=== PATIENT | male | born 1970 | race Caucasian/White ===

== ENCOUNTER 2016-12-14 06:23 | Emergency (ER) | payer BC, OTHER ==
[2016-12-14 08:14] VITALS: BP 118/76
--- NOTE | 2016-12-14 08:14 | RAD ---
HISTORY: Laceration to second digit of left hand COMPARISONS: None VIEWS: 3, Frontal, lateral, and oblique views of the second digit of the left hand FINDINGS: BONE DENSITY: Normal. BONES: There is a small bone fragment consistent with a nondisplaced fracture of the tip of the tuft of the distal phalanx of the second digit of left hand. JOINTS: There is no arthropathy. ALIGNMENT: There is no dislocation. SOFT TISSUES: Unremarkable. OTHER FINDINGS: None. IMPRESSION: NONDISPLACED FRACTURE OF THE TUFT OF THE DISTAL PHALANX OF THE SECOND DIGIT OF THE LEFT HAND
--- NOTE | 2016-12-14 08:22 | ED ---
Roger Godinez Anna, scribed for Ashley Valdivia MD on 12/14/16 at 0725 . Laceration/Wound HPI - HPI Summary HPI Summary: Patient is a 46 y/o male coming to [facility] presenting with sudden onset of a constant laceration on the 2nd digit of his left hand that occurred at 1999 last night. The patient was cleaning the blade of kitchen equipment last night when he cut his finger. He reports that the blade was clean. He bandaged the laceration with pressure last night. When he removed the bandage this morning, he couldnt stop the bleeding, so he came to the ER. He reports no other medical concerns at this time. His most recent tetanus shot was four years ago. - History of Current Complaint Stated Complaint: LEFT POINTER FINGER LAC Hx Obtained From: Patient Onset/Duration: Sudden Onset, Lasting Hours, Still Present Related Hx: Dominant Hand (Right) - Allergy/Home Medications Allergies/Adverse Reactions: Allergies Allergy/AdvReac Type Severity Reaction Status Date / Time No Known Allergies Allergy Verified 07/23/13 14:03 PMH/Surg Hx/FS Hx/Imm Hx Previously Healthy: Yes Endocrine/Hematology History: Denies: Hx Diabetes, Hx Thyroid Disease Cardiovascular History: Denies: Hx Hypertension Respiratory History: Denies: Hx Asthma, Hx Chronic Obstructive Pulmonary Disease (COPD) GI History: Reports: Other GI Disorders - hx gerd, pain 4 quads for 2 days Denies: Hx Ulcer - Surgical History Surgery Procedure, Year, and Place: Umbilical hernia repair 2005 Infectious Disease History: No Infectious Disease History: Reports: Hx Shingles - > 10 years ago Denies: Hx Hepatitis, Hx Human Immunodeficiency Virus (HIV), Traveled Outside the [place] in Last 30 Days - Family History Known Family History: Negative: Hypertension, Diabetes - Social History Occupation: Employed Full-time - [place] Lives: With Family - with Alcohol Use: Rare Substance Use Type: Reports: None Smoking Status (MU): Never Smoked Tobacco Review of Systems Constitutional: Negative Eyes: Negative ENT: Negative Cardiovascular: Negative Respiratory: Negative Gastrointestinal: Negative Genitourinary: Negative Musculoskeletal: Negative Skin: Other - laceration Neurological: Negative Psychological: Normal All Other Systems Reviewed And Are Negative: Yes Physical Exam Triage Information Reviewed: Yes Vital Signs On Initial Exam: Initial Vitals Temp Pulse Resp BP Pulse Ox 96.8 F 79 12 130/89 98 12/14/16 06:29 12/14/16 06:29 12/14/16 06:29 12/14/16 06:29 12/14/16 06:29 Vital Signs Reviewed: Yes Appearance: Positive: Well-Appearing, No Pain Distress Skin: Positive: Warm, Skin Color Reflects Adequate Perfusion, Dry Eyes: Positive: EOMI, MRACY ENT: Positive: Pharynx normal, TMs normal Neck: Positive: Supple, Nontender Respiratory/Lung Sounds: Positive: Clear to Auscultation, Breath Sounds Present. Negative: Rhonchi, Wheezes, Other - rebound Cardiovascular: Positive: RRR. Negative: Murmur, Rub, Other - gallop Abdomen Description: Positive: Nontender, Soft. Negative: Distended, Guarding, Other: - rebound Musculoskeletal: Positive: Strength/ROM Intact, Other - On patients left hand over the distal phalanx and over the ulnar edge of distal phalanx on dorsal surface laceration through superior ulnar edge of nail. Extends around to the volar surface with some skin loss on the pad of the distal phalanx, from midline to midline.. Negative: Edema Left, Edema Right Neurological: Positive: Sensory/Motor Intact, Alert, Oriented to Person Place, Time, CN Intact II-III - II-XII Psychiatric: Positive: Affect/Mood Appropriate Procedures - Procedure Summary Procedure Summary: Time out completed. Patient is neurovascularly intact and has good hemostasis. He has normal flexion extension at the joint. - Laceration/Wound Repair 1 Location: upper extremity - 2nd digit of left hand Length, Depth and Shape: 3 cm over the distal phalanx and over the ulnar edge of distal phalanx on dorsal surface laceration through superior ulnar edge of nail. Extends around to the volar surface with some skin loss on the pad of the distal phalanx, from midline to midline. Irrigated w/ Saline (ccs): 250 Laceration/Wound Explored: no foreign body removed Number of Sutures: 3 - 1 suture on the nail bed Diagnostics - Vital Signs Vital Signs Temp Pulse Resp BP Pulse Ox 12/14/16 06:29 96.8 F 79 12 130/89 98 - Laboratory Lab Statement: Any lab studies that have been ordered have been reviewed, and results considered in the medical decision making process. - Radiology Finger XR Xray Interpretation: No Acute Changes Radiology Interpretation Completed By: ED Physician - IMPRESSION: NO TUFT FRACTURE Laceration Repair Course/Dx - Course Course Of Treatment: Reviewed Up to Date Clean wounds in a healthy individual can be closed up to 18 hours on any body part without significant increase in wound infection. He doesnt need an Abx at this time. Because its the weekend, a prescription will be made available at the pharmacy if he sees signs of infection. one suture put through distal nail, pt aware this may need to be removed early if it is pulling as nail grows - Clinical Impression Provider Diagnoses: Laceration Discharge - Discharge Plan Condition: Stable Disposition: HOME Prescriptions: Cephalexin CAP* [Keflex CAP*] 500 mg PO QID #28 cap Patient Education Materials: Cephalexin (By mouth), Care For Your Stitches (ED) , Laceration (ED) Referrals: Maegan Rodarte NP [Primary Care Provider] - Additional Instructions: Follow up with primary care physician in 10-14 days for suture removal. Return to the emergency department for changing or worsening symptoms. You don't need an antibiotic at this time. However, if you see signs of infection, as was discussed, a prescription has been made available at your pharmacy. The documentation as recorded by the Roger mei Anna accurately reflects the service I personally performed and the decisions made by me, Ashley Valdivia MD.
== END 2016-12-14 08:14 | disposition home or self-care (01) ==
LOC: ED 06:23
DX: S61.211A Laceration without foreign body of left index finger without damage to nail, initial encounter (principal); S62.661A Nondisplaced fracture of distal phalanx of left index finger, initial encounter for closed fracture; W45.8XXA Other foreign body or object entering through skin, initial encounter; Y93.89 Activity, other specified; Y92.89 Other specified places as the place of occurrence of the external cause
CPT/HCPCS: 73140; 99283

== ENCOUNTER 2018-03-31 18:37 | Emergency (ER) | payer OTHER ==
[2018-03-31 18:42] VITALS: BP 128/93
[2018-03-31] MEDS ORDERED: Ibuprofen TAB* 600 MG PO ONE (18:51)
--- NOTE | 2018-03-31 19:15 | RAD ---
INDICATION: Right foot injury COMPARISON: None TECHNIQUE: AP, lateral, and oblique views were obtained. FINDINGS: There are no acute bony findings. There is moderate osteoarthritis about the first MTP joint with a hallux valgus deformity there is arthritic change or remote posttraumatic change about the base of the fifth metatarsal. The remaining joint spaces and soft tissues are normal. IMPRESSION: First MTP joint osteoarthritis. Osteoarthritic or remote posttraumatic changes base of fifth metatarsal.
--- NOTE | 2018-03-31 20:02 | UC ---
Roopa Godinez Elizabeth, scribed for Jose A Culver MD on 03/31/18 at 1857 . Lower Extremity/Ankle HPI - HPI Summary HPI Summary: This patient is a 47 year old M presenting to [facility] with a chief complaint of right foot pain since 17:45 today. The patient reports that the dancing and jumping around with his grandsons when the pain began. The patient reports that he previously broke his right foot in the same location several years ago. The patient rates the pain 6/10 in severity. Symptoms aggravated by bearing weight and palpation. Symptoms alleviated by nothing. - History of Current Complaint Chief Complaint: UCLowerExtremity Stated Complaint: foot injury Time Seen by Provider: 03/31/18 18:47 Hx Obtained From: Patient Onset/Duration: Sudden Onset, Lasting Hours - 1 hour, Still Present Severity Initially: Mild Severity Currently: Mild Pain Intensity: 6 Pain Scale Used: 0-10 Numeric Aggravating Factor(s): Standing, Other - palpation Alleviating Factor(s): Nothing Able to Bear Weight: Yes - Allergies/Home Medications Allergies/Adverse Reactions: Allergies Allergy/AdvReac Type Severity Reaction Status Date / Time No Known Allergies Allergy Verified 03/31/18 18:42 PMH/Surg Hx/FS Hx/Imm Hx Previously Healthy: Yes - Surgical History Surgical History: Yes Surgery Procedure, Year, and Place: Umbilical hernia repair 2005 - Family History Known Family History: Negative: Hypertension, Diabetes - Social History Alcohol Use: None Substance Use Type: None Smoking Status (MU): Never Smoked Tobacco - Immunization History Most Recent Influenza Vaccination: 07/05 Review of Systems Constitutional: Negative - negative fever Cardiovascular: Negative - negative chest pain Gastrointestinal: Negative - negative vomiting Musculoskeletal: Other: - right foot pain All Other Systems Reviewed And Are Negative: Yes Physical Exam - Summary Physical Exam Summary: General: well-appearing, no pain distress Skin: warm, color reflects adequate perfusion, dry, no skin breakage Head: normal Eyes: EOMI, MARCY ENT: normal Neck: supple, nontender Respiratory: CTA, breath sounds present Cardiovascular: RRR Abdomen: soft, nontender Bowel: present Musculoskeletal: normal, strength/ROM intact, tender mid and distal right 5th metatarsal Neurological: sensory/motor intact, A&O x3 Psychological: affect/mood appropriate Triage Information Reviewed: Yes Vital Signs: Initial Vital Signs Temp 98.8 F 03/31/18 18:39 Pulse 87 03/31/18 18:39 Resp 12 03/31/18 18:39 BP 128/93 03/31/18 18:39 Pulse Ox 100 03/31/18 18:39 Vital Signs Reviewed: Yes Diagnostics - Radiology Right foot XR Xray Interpretation: Positive (See Comments) - IMPRESSION: First MTP joint osteoarthritis. Osteoarthritic or remote posttraumatic changes base of fifth metatarsal. Dr. Culver has reviewed this report. Radiology Interpretation Completed By: Radiologist Lower Extremity Course/Dx - Course Course Of Treatment: DISCUSSED X-RAY RESULTS WITH THE PATIENT. POST OP SHOE AND NON WEIGHT BEARING UNTIL 04/07/18. F/U PMD OR ORTHO IF NOT IMPROVED. - Differential Dx/Diagnosis Provider Diagnoses: RIGHT FOOT SPRAIN Discharge - Sign-Out/Discharge Documenting (check all that apply): Discharge/Admit/Transfer - Discharge Plan Condition: Stable Disposition: HOME Discharge Disposition Comment: discharge home Prescriptions: HYDROcodone/ACETAMIN 5-325 MG* [[place] 5-325 TAB*] 1 tab PO Q4H PRN #30 tab MDD 6 PRN Reason: Pain Patient Education Materials: Crutch Instructions (ED), Foot Sprain (ED) Forms: *Work Release Referrals: Maegan Rodarte NP [Primary Care Provider] - Additional Instructions: FOLLOW UP WITH YOUR DOCTOR IF NOT COMPLETELY IMPROVED. GET RECHECKED FOR ANY WORSENING OF YOUR CONDITION OR QUESTIONS OR CONCERNS. - Billing Disposition and Condition Condition: STABLE Disposition: Home The documentation as recorded by the Roopa mei Elizabeth accurately reflects the service I personally performed and the decisions made by , Jose A Culver MD.
== END 2018-03-31 20:00 | disposition home or self-care (01) ==
LOC: UCEAST 18:37
DX: S93.601A Unspecified sprain of right foot, initial encounter (principal); M79.671 Pain in right foot; X50.9XXA Other and unspecified overexertion or strenuous movements or postures, initial encounter; Y93.39 Activity, other involving climbing, rappelling and jumping off; Y92.9 Unspecified place or not applicable
CPT/HCPCS: 99213; A9270-GY; G0463